=== PATIENT | male | born 1970 | race Two or more races ===

== ENCOUNTER 2016-12-26 07:30 | Inpatient (IN) | payer OTHER ==
[~2016-12-26] VITALS: Ht 177.8 cm; Wt 87.1 kg
[2016-12-26] VITALS (12 sets, daily range): BP systolic 110–140; BP diastolic 62–85
[2016-12-26] MEDS ORDERED: NKM (09:24)
--- NOTE | 2016-12-26 11:50 | Pre-Procedure Note/Attestation ---
Pre-Procedure Note/Attestation Complete Prior to Procedure Planned Procedure: not applicable Procedure Narrative: L5-S1 ALIF; L4-5 ADR; POSTERIOR RIGHT L5-S1 MICRODECOMPRESSION AND PEDICLE SCREWS; USE OF ALLOGRAFT, AUTOGRAFT Indications for Procedure Pre-Operative Diagnosis: POST-TRAUMATIC L5-S1, L4-5 INTERNAL DISC DISRUPTION AND DEREANGEMENT Attestation I attest that I discussed the nature of the procedure; its benefits; risks and complications; and alternatives (and the risks and benefits of such alternatives ), prior to the procedure, with the patient (or the patient's legal aircraft sales representative). I attest that, if there was a reasonable possibility of needing a blood transfusion, the patient (or the patient's legal aircraft sales representative) was given the [place] [facility] standardized written summary, pursuant to the Zane Kayla Blood Safety Act ([place] Health and Safety Code # 1645, as amended). I attest that I re-evaluated the patient just prior to the surgery and that there has been no change in the patient's H&P, except as documented below: Paul Saldana MD Dec 26, 2016 11:50
[2016-12-26] MEDS ORDERED: Naloxone 0.4mg/ml Inj IVP PRN (12:00)
[2016-12-26] MEDS: D5 1/2NS w/KCl 20mEq 1,000 ML IV SCH (12:00)
[2016-12-26] MEDS ORDERED: HYDROmorphone 1mg/ml Carpuject IVP PRN (12:00)
[2016-12-26] MEDS ORDERED: Norco 7.5mg/325mg tab ORAL PRN ×2 (12:00→13:30)
[2016-12-26] MEDS ORDERED: Thrombin 5000 units TOPIC ONE (12:14)
[2016-12-26] MEDS ORDERED: Gelfoam Absorbable 1gm powder pkt TOPIC ONE (12:15)
[2016-12-26] MEDS ORDERED: Thrombin 5000 units spray kit TOPIC ONE (12:15)
[2016-12-26] MEDS ORDERED: Bacitracin 50000 Units Vial ONE (12:15)
[2016-12-26] MEDS ORDERED: Bupivacaine w/Epi 0.5% 30ml Vial INJ ONE (12:15)
[2016-12-26] MEDS ORDERED: Gentamicin 80mg/100ml Premix 0 ML IVPB ONE (12:50)
[2016-12-26] MEDS ORDERED: Heparin 5000 units/ml inj ONE (12:55)
[2016-12-26] MEDS ORDERED: Dexamethasone 4mg/ml vial ONE (13:00)
[2016-12-26] MEDS ORDERED: LR 1000ml ONE (13:00)
[2016-12-26] MEDS ORDERED: Nimbex 2mg/ml Inj 10ML IVP ONE (13:00)
[2016-12-26] MEDS ORDERED: Lidocaine 1% Plain 30 ml INJ ONE (13:00)
[2016-12-26] MEDS ORDERED: fentaNYL 250mcg/5ml ONE (13:00)
[2016-12-26] MEDS ORDERED: Propofol 10mg/ml 100ml btl IV ONE (13:00)
[2016-12-26] MEDS ORDERED: LR 1000ml 1,000 ML IVLG SCH (13:22)
--- NOTE | 2016-12-26 13:22 | Anethesia Preoperative Eval ---
Anesthesia Pre-op PMH/ROS General Date of Evaluation: Dec 26, 2016 Time of Evaluation: 12:21 Anesthesiologist: Maria C ASA Score: ASA 2 Mallampati Score Class I : Soft palate, uvula, fauces, pillars visible Class II: Soft palate, uvula, fauces visible Class III: Soft palate, base of uvula visible Class IV: Only hard plate visible Mallampati Classification: Class II Surgeon: Les Diagnosis: Back Pain Surgical Procedure: L5-S1 ALIF; L4-5 ADR; POSTERIOR RIGHT L5-S1 MICRODECOMPRESSION AND PEDICLE Anesthesia History: none Family History: no anesthesia problems Allergies: Coded Allergies: PREDNISONE (Verified Allergy, Severe, rash, swelling, sob, 12/25/16) Medications: see eMAR Past Medical History Other: obesity - BMI 31 Anesthesia Pre-op Phys. Exam Physician Exam Last Vital Signs Date Time Temp Pulse Resp B/P Pulse Ox O2 Delivery O2 Flow Rate FiO2 12/26/16 09:12 96.9 65 20 140/85 95 Room Air Constitutional: NAD Neurologic: CN 2-12 intact Cardiovascular: RRR Respiratory: CTA Gastrointestinal: S/NT/ND Airway Exam Mallampati Score: Class II MO: full ROM: full Teeth: intact Anesthesia Pre-op A/P Risk Assessment & Plan Assessment: ASA 2 Plan: GA, BIS, Glidescope Pre-Antibiotics Dru Grams Ancef IV, 80 mg Gentamycin IV Given Within 1 Hr of Incision: Yes Time Given: 12:51 Ced Meyer MD Dec 26, 2016 13:22
[2016-12-26] MEDS ORDERED: Norco 5mg/325mg tab ORAL PRN (13:30)
[2016-12-26] MEDS ORDERED: Midazolam 2mg/2ml Inj IVP PRN (13:30)
[2016-12-26] MEDS ORDERED: Atropine Inj 1mg/10ml Syr IV PRN (13:30)
[2016-12-26] MEDS ORDERED: LORazepam Inj 2mg/ml 1ml IV PRN (13:30)
[2016-12-26] MEDS ORDERED: Ketorolac 30mg Inj IV PRN (13:30)
[2016-12-26] MEDS ORDERED: Metoclopramide 10mg/2ml Inj IVP PRN (13:30)
[2016-12-26] MEDS ORDERED: fentaNYL 100 mcg/2 mL IV PRN (13:30)
[2016-12-26] MEDS ORDERED: Oxycodone/Acetaminophen 5-325 ORAL PRN (13:30)
[2016-12-26] MEDS ORDERED: Hydromorphone 0.5mg/0.5ml inj IVP PRN (13:30)
[2016-12-26] MEDS ORDERED: Ketorolac 60mg Inj IV PRN (13:30)
[2016-12-26] MEDS ORDERED: Meperidine 25mg/0.5ml Inj IV PRN (13:30)
[2016-12-26] MEDS ORDERED: DiphenhydrAMINE 50mg/ml Inj IVP PRN (13:30)
--- NOTE | 2016-12-26 13:50 | Immediate Post-Op Evaluation ---
Immediate Post-Op Evalulation Immediate Post-Op Evalulation Procedure: L5-S1 ALIF; L4-5 ADR; POSTERIOR RIGHT L5-S1 MICRODECOMPRESSION AND PEDICLE Date of Evaluation: Dec 26, 2016 Time of Evaluation: 17:07 IV Fluids: 1000 LR Blood Products: 0 Estimated Blood Loss: 100 Urinary Output: 700 Blood Pressure Systolic: 114 Blood Pressure Diastolic: 71 Pulse Rate: 79 Respiratory Rate: 16 O2 Sat by Pulse Oximetry: 99 Temperature (Fahrenheit): 98.8 Pain Score (1-10): 3 Nausea: No Vomiting: No Complications 0 Patient Status: awake, reacts, patent, extubated, none Hydration Status: adequate Dru Grams Ancef IV, 80 mg Gentamycin IV Given Within 1 Hr of Incision: Yes Time Given: 12:51 Ced Meyer MD Dec 26, 2016 13:50
[2016-12-26] MEDS ORDERED: Acetaminophen (Non formulary) 100 ML IV ONE (14:00)
--- NOTE | 2016-12-26 17:13 | Brief Operative Note ---
Immediate Post Operative Note Operative Note Chief Complaint: post traumatic low back pain Pre-op Diagnosis: POST-TRAUMATIC L5-S1, L4-5 INTERNAL DISC DISRUPTION AND DEREANGEMENT Procedure: 1. L5-S1 ALIF 2. L4-5 ADR 3. ASI L5 TO S1 Post-op Diagnosis: SAME Post-op Diagnosis: same as pre-op Surgeon: TANNER SALDANA Additional Surgeons: Charlie RICK Anesthesiologist: Marquita MEAD Anesthesia: general Specimen: none Complications: none Condition: stable Fluids: CRYSTALLOID Estimated Blood Loss: volume - 50 CC Drains: none Implant(s) used?: Yes Paul Saldana MD Dec 26, 2016 17:13
[2016-12-26] MEDS: Bactrim DS (160mg/800mg) tab ORAL SCH (22:23)
[2016-12-26] MEDS: Pericolace tab ORAL SCH (22:24)
[2016-12-26] MEDS: celeBREX 200mg Cap **SURGERY PATIENTS ONLY ORAL SCH (22:24)
[2016-12-26] MEDS: ceFAZolin sod 1 GM in D5W 55 ML IV SCH (22:24)
[2016-12-27] VITALS: BP 122/62
[2016-12-27] MEDS: D5 1/2NS w/KCl 20mEq 1,000 ML IV SCH (01:20)
[2016-12-27 04:00] VITALS: BP 109/61
--- NOTE | 2016-12-27 04:30 | Operative Note - Dictated ---
FACILITY: [facility] SURGEON: Paul Saldana M.D. VASCULAR SPINE ACCESS SURGEON: Robert Arevalo M.D. ANESTHESIOLOGIST: Ced Meyer M.D. ANESTHESIA: General endotracheal. PREOPERATIVE DIAGNOSES: 1. Prolapse of the lumbar disk at L4-5 and L5-S1 without radiculopathy (M51.26). 2. Low back pain greater than many months (M54.50). 3. Injuries arising out of an industrial work site injury. POSTOPERATIVE DIAGNOSES: 1. Prolapse of the lumbar disk at L4-5 and L5-S1 without radiculopathy (M51.26). 2. Low back pain greater than many months (M54.50). 3. Injuries arising out of an industrial work site injury. PROCEDURES: 1. Muscle sparing anterior rectus retroperitoneal approach to the L4-5 and L5-S1 disk spaces with mobilization of the great vessels and the ureter. 2. An anterior lumbar interbody diskectomy and arthrodesis at L5-S1. 3. Lumbar total disk arthroplasty at L4-L5. 4. Anterior spinal instrumentation from L5-S1. 5. Harvesting of right iliac crest bone through separate fascial and skin incision, major. 6. Use of structural allograft bone and spinal surgery. 7. Use of the high-powered surgical microscope. 8. Monitoring of intraoperative neurophysiological surveillance. 9. Use of fluoroscopy in spine surgery with professional interpretation of intraoperative images. 10. Multilayered complex wound closure. COMPLICATIONS: There were no complications. EBL=50 mL. SPECIMENS: None. COUNTS: Correct. IMPLANTS: 1. Renovis S128 ALIF Cage measuring 38 x 30 x 13 mm height, 12 degree lordosis at L5-S1. 2. Renovis ALIF system cover plate. 3. Renovis ALIF system cage constrained screws 5 mm x 30 x2. 4. Renovis ALIF cage variable angled screws 4.5 mm x 35 x2. 5. FloSeal hemostatic matrix. 6. Rezdytronic allograft bone putty 5 mL. 7. Aesculap Activ L inferior artificial disk base plate large. 8. Aesculap Activ L superior endplate size large 6 degree lordosis. 9. Aesculap Activ L polyethylene inserts inlay 8.5 mm in height. INDICATION: The patient is a 46-year-old male who sustained an industrial injury to his lower back as a result of a fall from a height of at least 10 to 12 feet, landed directly on his back. He has been treated conservatively for the last 2-1/2 to 3 years and this has entailed multiple courses of physical therapy, lumbar pain management procedures, activity modification, periods of rest, and use of nonsteroidal anti-inflammatory agents. His symptoms have proven refractory to all the above measures. He underwent a provocative and therapeutic lumbar diskectomy, which was markedly concordant at the L5-S1 and L4-5 levels. I also encouraged them to see if he will qualify for lumbar function mandaeism program, however, he did not have any insurance coverage for this. Having failed all the above measures, the patient has elected to undergo definitive surgical management. No warranties or guarantees as to outcome were implied, expressed, or intended. An extended discussion was conducted with the patient and his family as far as the risks, benefits, and complications. All questions were answered. DESCRIPTION OF PROCEDURE: On the day of the procedure, the patient was reexamined and reassessed in the preop holding area. It was ascertained that his neurological physical exam has been unchanged. Written informed consent was obtained. The appropriate surgical levels were delineated on the skin. The patient was then transported to the OR. The patient was placed supine on the radiolucent sliding vascular table. General anesthesia was induced by Dr. Meyer after appropriate hemodynamic monitoring lines were placed. A Frances catheter was inserted using aseptic technique. After administration of appropriate intravenous antibiotics in the form of 2 grams of Ancef and 80 milligrams of gentamicin, a surgical time-out was called according to universal protocol. At this point, the abdomen was prepped and isolated in a standard sterile fashion. Initially the C-arm fluoroscope was brought into the field under fluoroscopic guidance. The right iliac crest was accessed with a 2 cm incision and then approximately 2 cores of corticocancellous bone graft was obtained using 2 separate passes. Additionally, the bone marrow aspirate was obtained. It was harvested through a separate pass for the administration of the bone marrow concentrate. Next Dr. Arevalo proceeded to perform an anterior rectus sparing retroperitoneal approach to the L4-5 and L5-S1 levels. This will be separately dictated on a separate cover. The high powered spine surgical microscope was brought into the field. Once the vessels were mobilized and the iliolumbar vein was doubly ligated and mobilized, appropriate retractors were then placed. We first addressed the L4-5 level. The midline was identified and marked by a radiodense marker. We obtained true anatomic AP of this disk with the C-arm maintained at 90 degrees by slightly derotating the patient. A wide anterior annulotomy was obtained at L4-5 using a #10 and 15 blade sequentially. We systematically then evacuated and mobilized the disk space. Extreme care was taken to preserve the bony endplates to prevent implant migration and subsidence. Particular attention was paid to decompress, mobilize, and release circumferentially contractions of the posterolateral corners. Next paddle distractors were brought into the field and placed side to side with further mobilization and release of the disk space. Hemostasis achieved using FloSeal as well as thrombin impregnated Gel-Foam. Once the posterior longitudinal ligament was released and the rectangular disk space was achieved, the Aesculap medium and large trial base plate implants were then introduced and the large base plate was felt to provide the best coverage. At this point, a Valsalva maneuver was conducted without any evidence of any CSF leak. The actual large superior and inferior endplates and a 8.5 mm polyethylene insert was loaded onto the oil house attendant handle and once appropriately mounted was then impacted in place under biplanar fluoroscopic control. After appropriate depth was achieved, the oil house attendant handle was then detached. At this point, the retractors were then readjusted in order to maximize the exposure of the L5-S1 disk interspace. The medial sacral artery was then doubly ligated and clipped. Again, once the level was confirmed, the wide anterior annulotomy was performed using a #10 blade. Álvarez elevators were used to subperiosteally dissect the disk from its cartilaginous endplate and to further resect the cartilaginous endplate. Mobilization of the lateral annulus was undertaken with partial release of the posterior longitudinal ligament. Bleeding bony endplates were achieved. Trial ALIF cages from the Renovis system was brought onto the field and a 38 mm wide, 30 mm deep and 13 mm height 12 degree lordotic cage provided best optimal fit and fill. The cage was then packed with a composite bone graft material and then impacted under biplanar fluoroscopic control. The cage was additionally transfixed and further secured using a plate and screw construct. With the cage in place, there was noted to be excellent foraminal distraction with mandaeism of lumbar lordosis. At this point in time, the retroperitoneal space was irrigated with 500 mL of antibiotic solution. Further hemostasis achieved using FloSeal with hemostatic matrix as well as thrombin impregnated Gel-Foam. A multilayered closure was undertaken. Sponge and needle counts were correct. The patient tolerated the procedure well and transferred to the recover room in stable condition. Paul Saldana M.D. DR: YURIY JOB#: [id number] CC: LEXIS
[2016-12-27] MEDS: Norco 7.5mg/325mg tab ORAL PRN ×3 (05:42→18:16)
[2016-12-27] MEDS: ceFAZolin sod 1 GM in D5W 55 ML IV SCH ×2 (05:43→14:38)
[2016-12-27 08:30] VITALS: BP 112/64
[2016-12-27 08:34] LABS: ANION GAP 11 (5-15); CALCIUM 8.6 mg/dL (8.6-10.2); CARBON DIOXIDE 28 mEQ/L (20-30); CHLORIDE 101 mEQ/L (98-107); CREATININE 0.9 mg/dL (0.7-1.2); GLOMERULAR FILTRATION RATE > 60 mL/min (>60); HEMOLYSIS 6; POTASSIUM 4.8 mEQ/L (3.4-4.9); SODIUM 140 mEQ/L (135-145)
[2016-12-27 09:00] LABS: BASOPHILS % (AUTO) 0.2 % (0.0-2.0); LYMPHOCYTES % (AUTO) 11.5 % (20.0-45.0); MEAN CORPUSCULAR HGB CONC 35.7 G/DL (32.0-36.0); MEAN CORPUSCULAR VOLUME 87 FL (80-99); MEAN PLATELET VOLUME 9.5 FL (6.5-10.1); MONOCYTES % (AUTO) 8.4 % (1.0-10.0); NEUTROPHILS % (AUTO) 79.9 % (45.0-75.0); PLATELET COUNT 161 K/UL (150-450); RED BLOOD COUNT 4.44 M/UL (4.70-6.10); RED CELL DISTRIBUTION WIDTH 11.2 % (11.6-14.8); WHITE BLOOD COUNT 14.6 K/UL (4.8-10.8)
[2016-12-27] MEDS: Pericolace tab ORAL SCH ×2 (09:14→18:17)
[2016-12-27] MEDS: Bactrim DS (160mg/800mg) tab ORAL SCH ×2 (09:14→18:17)
[2016-12-27] MEDS: celeBREX 200mg Cap **SURGERY PATIENTS ONLY ORAL SCH ×2 (09:15→18:17)
--- NOTE | 2016-12-27 10:41 | 48 Hour Post Anesthesia Eval ---
Post Anesthesia Evaluation Procedure: L5-S1 ALIF; L4-5 ADR; POSTERIOR RIGHT L5-S1 MICRODECOMPRESSION AND PEDICLE Date of Evaluation: Dec 27, 2016 Time of Evaluation: 10:40 Blood Pressure Systolic: 116 0: 74 Pulse Rate: 68 Respiratory Rate: 20 Temperature (Fahrenheit): 97.6 O2 Sat by Pulse Oximetry: 98 Airway: patent Nausea: No Vomiting: No Pain Intensity: 3 Hydration Status: adequate Cardiopulmonary Status: stable Mental Status/LOC: patient returned to baseline Follow-up Care/Observations: n/a Post-Anesthesia Complications: none Follow-up care needed: N/A LINNETTE BRUNER M.D. Dec 27, 2016 10:41
[2016-12-27 11:58] VITALS: BP 119/67
[2016-12-27 16:16] VITALS: BP 110/70
[2016-12-27] MEDS ORDERED: traMADol 50mg tab ORAL PRN (16:30)
[2016-12-27 20:00] VITALS: BP 114/68
[2016-12-28 04:00] VITALS: BP 106/59
[2016-12-28] MEDS: Norco 7.5mg/325mg tab ORAL PRN (05:43)
[2016-12-28 08:00] VITALS: BP 121/70
[2016-12-28] MEDS: Bactrim DS (160mg/800mg) tab ORAL SCH (08:37)
[2016-12-28] MEDS: celeBREX 200mg Cap **SURGERY PATIENTS ONLY ORAL SCH (08:37)
[2016-12-28] MEDS: Pericolace tab ORAL SCH (08:37)
[2016-12-28] MEDS ORDERED: NORCO 10-325 T1 EACH ORAL (09:34)
[2016-12-28] MEDS ORDERED: CELEBREX100 MG ORAL (09:34)
[2016-12-28] MEDS ORDERED: Tubing IV Secondary IV ONE (10:44)
--- NOTE | 2016-12-29 09:10 | Diagnostic Imaging Report ---
Indication: Back pain Comparison: None Findings: Fluoroscopic views of the lumbar spine were obtained. Fluoroscopic images obtained during discectomy at L4-5 and L5-S1 and anterior fixation/fusion of L5-S1. Impression: Intraoperative imaging
--- NOTE | 2016-12-29 13:19 | Discharge Summary ---
Discharge Summary Hospital Course Date of Admission Dec 26, 2016 at 07:55 Date of Discharge Dec 28, 2016 at 10:45 Admitting Diagnosis POST-TRAUMATIC L5-S1, L4-5 INTERNAL DISC DISRUPTION AND DERANGEMENT Reason for Hospitalization: elective surgery HPI Jerome Dawn is a 46 year old male who was admitted on Dec 26, 2016 at 07: 55 for Internal Disc Prolapse and elective surgery Procedures neurosurgeon -dr Saldana vascular surgeon dr Arevalo 1. Muscle sparing anterior rectus retroperitoneal approach to the L4-5 and L5-S1 disk spaces with mobilization of the great vessels and the ureter. 2. An anterior lumbar interbody diskectomy and arthrodesis at L5-S1. 3. Lumbar total disk arthroplasty at L4-L5. 4. Anterior spinal instrumentation from L5-S1. 5. Harvesting of right iliac crest bone through separate fascial and skin incision, major. 6. Use of structural allograft bone and spinal surgery. 7. Use of the high-powered surgical microscope. 8. Monitoring of intraoperative neurophysiological surveillance. 9. Use of fluoroscopy in spine surgery with professional interpretation of intraoperative images. 10. Multilayered complex wound closure. Hospital Course s/p surgery course of recovery uneventful pain management, controlled incision C/D/I neurovascular intact PT/OT, able to ambulate freely voided freely tolerated diet stable for discharge fup with surgeon as outpatient DISCHARGE DIAGNOSIS 1. Prolapse of the lumbar disk at L4-5 and L5-S1 without radiculopathy 2. Posttraumatic L5-S1, L4-5 internal disk disruption and derangement 2. Low back pain 3. Injuries arising out of an industrial work site injury. 4. S/P 12/26 - L5-S1 ALIF; L4-5 ADR; POSTERIOR RIGHT L5-S1 MICRODECOMPRESSION AND PEDICLE SCREWS; USE OF ALLOGRAFT, AUTOGRAFT Discharge Medications Continued Medications: Celecoxib* (Celebrex*) 100 Mg Capsule 100 MG ORAL TWICE A DAY, CAP Hydrocodone Bit/Acetaminophen 10-325* ([place] 10-325*) 1 Each Tablet 1 TAB ORAL Q4H PRN for For Pain, TAB 0 Refills PRN PAIN Discharge Condition Upon Discharge: stable Discharge Disposition Patient was discharged to Home (01) Discharge Diagnoses: Discharge Instructions Discharge Instructions Special Instructions I have been assigned to complete a D/C Summary on this account. I was not involved in the patient management Sara Barillas NP ([place]) Dec 29, 2016 13:19
--- NOTE | 2016-12-29 20:15 | Operative Note - Dictated ---
DATE OF OPERATION: 12/26/2016 DICTATING PHYSICIAN: Robert Arevalo M.D. VASCULAR SURGEON: Robert Arevalo M.D., SPINE SURGEON: Isiah Saldana M.D. PREOPERATIVE DIAGNOSIS: Degenerative disk disease. POSTOPERATIVE DIAGNOSIS: Degenerative disk disease. PROCEDURE PERFORMED: 1. Anterior retroperitoneal exposure of L4-L5 vertebral interspace. 2. Anterior retroperitoneal exposure of L5-S1 vertebral interspace. INDICATIONS: The patient is very pleasant gentleman who was seen prior to surgery. He has been scheduled for anterior fusion L5-S1 and L4-L5. He does have a prior history of an appendectomy however no history of anterior retroperitoneal surgery or no history of deep venous thrombosis was described. The patient made aware of the risks of surgery including vascular injury, possible need for blood transfusion, deep venous thrombosis. DESCRIPTION OF FINDINGS: A vertical midline incision was used. Left retrograde preperitoneal approach was used. There is no peritoneal or ureteral violation. There is no vascular injury. Exposure of L4-L5 was obtained by retraction of the left iliac vessels towards the patient's right and exposure of L5-S1 was obtained below the iliac bifurcation with retraction of left common iliac vessels superiorly and laterally. On completion, the peritoneum and ureter are intact. Iliac vessels are intact. Blood loss approximately 100 mL. COMPLICATIONS: None. DESCRIPTION OF PROCEDURE: The patient was taken to the operative room, general anesthesia was used. Intravenous antibiotics were given. The patient's abdomen was prepped and draped. Appropriate timeout procedures were taken. A vertical midline incision was made infraumbilically. The anterior fascia was incised longitudinally in the midline. A plane identified posterior to the left rectus abdominis developed posterolaterally towards the patient's left. The retroperitoneal space entered below the arcuate line. The peritoneum and ureter mobilized towards the patient's right exposing the left common iliac vessels. Initially dissection was carried to the left side. The left common iliac bifurcation. Overlying lymphatics were ligated with vascular clips. The iliolumbar veins encircled using a 2-0 silk tie and then triply ligated proximally and distally with vascular clips and divided. The L4 segmental artery and vein were also identified and ligated with vascular clips and divided. This allowed us to then retract the left iliac vessels towards the patient's right exposing the anterior surface of L4-L5. The Omni retractor set in place. Fluoroscopy then used to confirm the appropriate level. An instrumentation was performed at L4-L5 dictated separately. On completion of this, the retractors then repositioned below the iliac bifurcation. The middle sacral artery and vein were divided between vascular clips and this allowed us to retract the left common vessels superior and laterally exposing anterior surface of L5-S1. once again used to confirm the appropriate level and then instrumentation was then performed at L5-S1 dictated separately. On completion, the retractors were relaxed. The peritoneum and ureter intact. Iliac vessels are intact. Anterior fascia closed using #1 PDS in a running fashion and skin and subcutaneous tissue closed using 3-0 Vicryl and 4-0 Monocryl running subcuticular closure technique. ESTIMATED BLOOD LOSS: Less than 100 mL. COMPLICATION: None. Robert Arevalo M.D. DR: Kayli JOB#: [id number] CC:
== END 2016-12-28 10:45 | disposition home or self-care (01) | DRG 460 ==
LOC: SDSOVERFLO 07:55 → 3E 19:15
PROC: 0SB20ZZ Excision of Lumbar Vertebral Disc, Open Approach (ICD-10-PCS; principal; 2016-12-26 10:30)
PROC: 0SR20JZ Replacement of Lumbar Vertebral Disc with Synthetic Substitute, Open Approach (ICD-10-PCS; principal; 2016-12-26 10:30)
PROC: 0SG30A0 Fusion of Lumbosacral Joint with Interbody Fusion Device, Anterior Approach, Anterior Column, Open Approach (ICD-10-PCS; principal; 2016-12-26 10:30)
PROC: 0SB40ZZ Excision of Lumbosacral Disc, Open Approach (ICD-10-PCS; principal; 2016-12-26 10:30)
PROC: 0QB20ZZ Excision of Right Pelvic Bone, Open Approach (ICD-10-PCS; principal; 2016-12-26 10:30)
DX: M51.26 Other intervertebral disc displacement, lumbar region (principal); I10 Essential (primary) hypertension; M51.27 Other intervertebral disc displacement, lumbosacral region; W17.89XS Other fall from one level to another, sequela; M51.36 Other intervertebral disc degeneration, lumbar region; M51.37 Other intervertebral disc degeneration, lumbosacral region
CPT/HCPCS: 36415; 72020; 76001; 80048; 85025; 86850; 86900; 86901; 87081; 94003; 94150; C9399; J1580; J2180; J2405